=== PATIENT | female | born 1950 | race Caucasian/White ===

== ENCOUNTER 2023-11-07 11:49 | Outpatient (REF) | payer MEDICARE, SELFPAY ==
[2023-11-08 22:14] LABS: Immunoglobulin E 67 kU/L (<OR=114)
== END 2023-11-07 11:50 | disposition home or self-care (01) ==
LOC: HO.LAB 11:49
PROVIDERS: Visit Provider Physician Assistant
DX: L50.1 Idiopathic urticaria (principal); T78.3XXA Angioneurotic edema, initial encounter; J45.30 Mild persistent asthma, uncomplicated; J30.1 Allergic rhinitis due to pollen; T63.441D Toxic effect of venom of bees, accidental (unintentional), subsequent encounter; J82.83 Eosinophilic asthma; Y93.9 Activity, unspecified; Y92.9 Unspecified place or not applicable; Y99.9 Unspecified external cause status
CPT/HCPCS: 36415; 82785; 83520; 86003